=== PATIENT | male | born 1955 | race Caucasian/White ===

== ENCOUNTER → 2020-06-16 | Outpatient (CLI) | payer OTHER ==
--- NOTE | 2020-06-16 11:33 | CT ---
EXAM DESCRIPTION: Chest w/o Contrast CLINICAL HISTORY: 64 years Male, MALIGNANT NEOPLASM OF UNDESCENDED LEFT TESTIS TECHNIQUE: This exam was performed according to our departmental dose-optimization program, which includes automated exposure control, adjustment of the mA and/or kV according to patient size and/or use of iterative reconstruction technique. COMPARISON: May 01, 2016 FINDINGS: The thyroid gland is unremarkable. No axillary adenopathy. Coronary artery calcifications. No significant pericardial effusion. Redemonstrated prevascular lymph node measuring 1.6 x 1.2 cm, previously 1.8 x 1.4 cm, series 2 image 19. No new mediastinal adenopathy. No pneumothorax. No pleural effusion. No focal consolidation. No suspicious pulmonary nodule. No acute or suspicious osseous abnormality. Scattered degenerative changes present. IMPRESSION: 1. Interval decrease in size of the prevascular lymph node. 2. No new evidence of metastatic disease in the chest. Electronically signed by: Migue Willingham MD 06/16/2020 11:32 AM CDT
== END ==
LOC: CT 09:05
PROVIDERS: ATTEND Family Medicine
DX: C78.02 Secondary malignant neoplasm of left lung (principal); C62.02 Malignant neoplasm of undescended left testis